=== PATIENT | female | born 1980 | race Two or more races ===

== ENCOUNTER 2020-06-17 15:11 | Outpatient (REF) | payer OTHER, SELFPAY | END 2020-06-17 15:12 | disposition home or self-care (01) | LOC: HO.LNP 15:11 | PROVIDERS: Visit Provider Hospitalist | DX: Z20.828 Contact with and (suspected) exposure to other viral communicable diseases (principal) | CPT/HCPCS: U0003 ==

== ENCOUNTER → 2023-04-27 12:50 | Outpatient (BNVA) | payer OTHER, SELFPAY | PROVIDERS: PCP Internal Medicine; Visit Provider Physician Assistant ==

== ENCOUNTER 2023-04-30 08:04 | Outpatient (AMB) | payer OTHER, SELFPAY ==
--- NOTE | 2023-04-30 12:01 | MHC.OFFVISWM ---
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 BMI 42.5 HPI Details Start time: 11.53am, End time: 12.38pm ?I spent 40 minutes speaking with the patient on the phone plus an additional 5 minutes reviewing and updating records for a total of 45 minutes HPI Comments History of Present Illness Details Previous weight loss efforts: OTC pills Wakes up: 6am, Sleeps: 10pm sometimes cannot sleep until 2am and may snack x2/wk Breakfast: x4/wk at 8am (eggs, sandwich, sausage) Lunch: 12pm (fast food) Dinner: 5-7pm (steaks, pork chops, rice, beans, burger) Snacks: 3 times between 8am-12pm (candy, cupcakes, chips), 2 times between lunch and dinner (same), 1 snack at night if she sleeps late Exercise: walk outside Fluids: [employer] coffee (18oz), tea: none, soda: regular Coke (1 pack of mini cans), juice: rare, ETOH: 1/wk (20oz Red Bull with alcohol) [facility] Medical History (Updated 04/30/23 @ 12:05 by Zane Tineo MD) Ectopic Morbid obesity Surgical History (Updated 04/30/23 @ 12:05 by Zane Tineo MD) History of salpingectomy Family History (Updated 04/27/23 @ 13:22 by FLAKITO Bradford) Mother Hypertension Fibromyalgia Arthritis Cancer of unknown origin Osteoarthritis Father Heart abnormality Daughter Hyperthyroidism Son Hypothyroid Son No problems noted. Son No problems noted. 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 Plan for lap sleeve gastrectomy. If diaphragmatic or ventral hernias are present at time of surgery, these will be repaired laparoscopically as well. Risks and complications were discussed in detail including possible conversion to an open procedure, anastomotic leak, bleeding requiring transfusion, small bowel obstruction, , DVT and pulmonary embolism, cardiac, or pulmonary complications, as terminal gauger supervisor complications such as anastomotic ulcer, insufficient weight loss and vitamin deficiencies. I emphasized the importance of close follow-up, adherence to instructions and good communication. 2. Nutritional counseling. Nutritional counseling. Start with 2 CELEBRATE REBUILD protein (buy at [facility]'s [employer]) shakes (HALF scoop EACH in 8oz low fat unsweetened almond milk each) at 7am-9am and 10am-12pm, 2 protein bars (CELEBRATE protein bars, buy at [facility] [employer]), one at 1pm-3pm and one at 4pm-6pm, dinner at 7pm (8 forks of protein and 8 forks of salad/vegetables) AND one more protein bar after dinner at 9pm-11pm. So you do 2 protein shakes, 3 protein bars and one meal per day. Meal to include lean meat (beef, fish, pork, turkey, chicken), or thai yogurt, or egg whites, or beans with a salad with olive oil and fruits (berries, pears, apples, kiwi). Avoid salt, breads, potatoes, rice, pasta, desserts. 3. Each shake would be drunk slowly, like coffee in a period of 2 hours. 4. Cut each bar in 4 pieces and eat each piece in 30min ?to make each bar last 2 hours. 5. I emphasized the importance of measuring accurately the food portion and measure it when serving the food in plate 6. The meal portions include 8 full-size forks of meat and 8 full-size forks of salad. You always eat the meat portion but you can replace up to 4 forks for salad/vegetables with rice, potatoes or pasta, or a fruit ?if you like. The less you do it the better weight loss will be. 7. One full-size fork is what it can be scooped on the fork without falling aside and not what can be bit with the fork. Use regular forks like those you find in a typical restaurant. 8.? Please send me weight measurements as soon as possible and then once a week. Always include your diet and exercise plan. 9. Start walking outside daily, tracking calories with a goal of 300 calories per day, daily. Goal is to burn 2000 calories per week on exercise, which means either 300 calories daily, or 400 calories 5 days per week, or 500 calories 4 days per week, or 650 calories 3 days per week. 10. Alternatively purchase a stationary bike, elliptical or treadmill at home that can track calories. Let me know if you do so I can give you an exercise plan. 11.?It is important of avoiding and for at least 18 months postoperatively and has been discussed at the infosession. 12. Goal is to lose at least 1.5-2lbs per week 13. Goal to lose 10% of your weight before surgery, which is about 23lbs. Ultimate weight goal: 209lbs before surgery 14. Please follow the diet plan exactly without any change. If you don't like something about the plan or you feel hungry you need to communicate with me so I can help you revise the plan. You should not change the plan yourself. Orders: Orders Insulin Today E66.01 - Morbid (severe) obesity due to excess calories Lipid Panel Today E66.01 - Morbid (severe) obesity due to excess calories Complete Blood Count Auto Diff Today E66.01 - Morbid (severe) obesity due to excess calories Vitamin B12 and Folate Today E66.01 - Morbid (severe) obesity due to excess calories Comprehensive Met. Panel Today E66.01 - Morbid (severe) obesity due to excess calories Vitamin B1 Today E66.01 - Morbid (severe) obesity due to excess calories Ferritin Today E66.01 - Morbid (severe) obesity due to excess calories TSH reflex Free T4 Today E66.01 - Morbid (severe) obesity due to excess calories H Pylori Breath Test Today E66.01 - Morbid (severe) obesity due to excess calories Vitamin D 25-OH Total Today E66.01 - Morbid (severe) obesity due to excess calories Hemoglobin A1c Today E66.01 - Morbid (severe) obesity due to excess calories US abdomen comp w elastography Today E66.01 - Morbid (severe) obesity due to excess calories FL upper GI w air Today E66.01 - Morbid (severe) obesity due to excess calories IRON PROFILE Today E66.01 - Morbid (severe) obesity due to excess calories Zinc Today E66.01 - Morbid (severe) obesity due to excess calories Vitamin A Today E66.01 - Morbid (severe) obesity due to excess calories C Reactive Protein Today E66.01 - Morbid (severe) obesity due to excess calories PTHI Today E66.01 - Morbid (severe) obesity due to excess calories XR chest 2V Today E66.01 - Morbid (severe) obesity due to excess calories ECG 12 lead EKG Today E66.01 - Morbid (severe) obesity due to excess calories Referrals Behavioral Health Referral E66.01 - Morbid (severe) obesity due to excess calories Nutrition/Dietitian Referral E66.01 - Morbid (severe) obesity due to excess calories Telehealth Telehealth Location of provider rendering services: practice address Location of patient: address on file Patient Identification confirmed using: Name, : Yes Telehealth method: voice only Patient verbally consented to treatment: Yes Patient verbally consented to billing insurance company: Yes Patient informed of any privacy concerns related to visit: Yes Minutes spent on Phone/Video with Pt.: 45 Coding Level of Care Code Tele Est Pt Level 4 (50452) Diagnoses Morbid obesity E66.01 Time Spent (min) 45
[2023-04-30 12:13] VITALS: BMI 42.4
== END 2023-04-30 12:39 | disposition home or self-care (01) ==
LOC: HO.HBS 08:04
PROVIDERS: PCP Internal Medicine; Visit Provider Surgery
DX: E66.01 Morbid (severe) obesity due to excess calories (principal); Z68.41 Body mass index [BMI] 40.0-44.9, adult
CPT/HCPCS: 99204

== ENCOUNTER → 2023-04-30 08:04 | Outpatient (BNVA) | payer OTHER, SELFPAY | PROVIDERS: PCP Internal Medicine; Visit Provider Surgery ==

== ENCOUNTER 2023-05-11 08:36 | Outpatient (REF) | payer OTHER, SELFPAY ==
[2023-05-13 15:19] LABS: H Pylori Breath Test Negative (Negative)
== END 2023-05-11 08:37 | disposition home or self-care (01) ==
LOC: HO.LNP 08:36
PROVIDERS: Surgery; PCP Internal Medicine; Visit Provider Physician Assistant Surgical
DX: E66.01 Morbid (severe) obesity due to excess calories (principal); Z11.0 Encounter for screening for intestinal infectious diseases
CPT/HCPCS: 83013; 99211

== ENCOUNTER 2023-05-12 10:15 | Outpatient (REF) | payer OTHER, SELFPAY ==
--- NOTE | ~2023-05-12 | XR_ITS ---
EXAMINATION: XR CHEST CLINICAL INFORMATION: Morbid (severe) obesity due to excess calories COMPARISON: None available. TECHNIQUE: 2 views of the chest were obtained. 10:32 AM FINDINGS: No significant abnormality is noted involving the heart, lungs, mediastinum, bony thorax or soft tissues. XR/XR chest 2V IMPRESSION: Unremarkable examination.
[2023-05-12 11:19] LABS: MANUAL DIFF FLAG NO
[2023-05-12 11:22] LABS: Basophils Percent Auto 0.7 % (0-2); Eosinophils Absolute Auto 0.2 X10*3/uL (0.0-0.4); Eosinophils Percent Auto 2.5 % (0-4); Hemoglobin 12.5 g/dl (12.0-16.0); Imm Gran Abs Auto 0.02 X10*3/uL (0.00-0.03); Imm Gran Pct Auto 0.3 % (0.0-0.4); Lymphocytes Absolute Auto 1.9 X10*3/uL (1.2-4.9); Lymphocytes Percent Auto 32.1 % (20-40); Mean Corpuscular HGB Conc 33.8 g/dl (31.0-35.0); Mean Corpuscular Hemoglobin 30.3 pg (27.0-33.0); Mean Corpuscular Volume 89.8 fL (80.0-98.0); Mean Platelet Volume 9.9 fL (9.4-12.3); Monocytes Absolute Auto 0.4 X10*3/uL (0.1-1.2); Monocytes Percent Auto 7.4 % (2-11); Neutrophils Absolute Auto 3.4 x10*3/uL (2.0-8.3); Platelet Count 327 X10*3/uL (160-400); Red Blood Count 4.12 X10*6/uL (4.20-5.50); Red Cell Distribution Width 12.2 % (11.0-16.0)
[2023-05-12 11:49] LABS: Estimated Average Glucose 108 mg/dL; Hemoglobin A1c % 5.4 % (<6.0)
[2023-05-12 14:24] LABS: Alanine Aminotransferase 18 U/L (0-31); Alkaline Phosphatase 67 U/L (39-117); Anion Gap 13 (12-20); Aspartate Amino Transferase 19 U/L (5-31); Bilirubin Total 0.5 mg/dL (0.0-1.0); Blood Urea Nitrogen 8 mg/dL (9-16); C Reactive Protein 1.12 mg/dL (< or = 0.50); Calcium 8.2 mg/dL (8.4-10.2); Carbon Dioxide 23 mmol/L (22-29); Chloride 110 mmol/L (96-108); Cholesterol 168 mg/dL (<200); Estimated Glomerular Filt Rate > 60; Glucose Random 73 mg/dL (60-115); HDL Cholesterol 50 mg/dL (>40); Iron 65 mcg/dL (30-160); LDL Cholesterol Calculated 106 mg/dL (<100); Percent Iron Saturation 22 % (15-50); Potassium 3.8 mmol/L (3.3-5.1); Sodium 142 mmol/L (135-145); Total Iron Binding Capacity 294 mcg/dL (228-428); Total Protein 7.4 g/dL (6.5-8.0); Triglycerides 64 mg/dL (<150); Unsaturated Iron Binding 229 ug/dL
[2023-05-12 14:34] LABS: Ferritin 21 ng/mL (10-250); Insulin 8 uU/mL (2-29); TSH reflex Free T4 1.44 uIU/mL (0.32-4.0); Vitamin D 25-OH Total 22.8 ng/mL (>30)
[2023-05-12 14:50] LABS: Folate 13.4 ng/mL (> or = 4.0); Vitamin B12 197 pg/mL (200-900)
[2023-05-15 05:28] LABS: Zinc 70 mcg/dL (60-130)
[2023-05-15 15:48] LABS: Calcium (PTHI) 8.7 mg/dL (8.6-10.2); PTHI 61 pg/mL (16-77)
[2023-05-17 03:59] LABS: Vitamin A 26 mcg/dL (38-98)
[2023-05-20 00:05] LABS: Vitamin B1 7 nmol/L (8-30)
== END 2023-05-12 10:16 | disposition home or self-care (01) ==
LOC: HO.HMGCX 10:15
PROVIDERS: Visit Provider Surgery
DX: E66.01 Morbid (severe) obesity due to excess calories (principal)
CPT/HCPCS: 36415; 71046; 80053; 80061; 82306; 82607; 82728; 82746; 83036; 83525; 83540; 83970; 84425; 84443; 84590; 84630; 85025; 86140

== ENCOUNTER → 2023-06-01 07:56 | Outpatient (REF) | payer OTHER, SELFPAY ==
--- NOTE | 2023-06-01 08:04 | ECG_ITS ---
Test Reason : obesity Blood Pressure : / mmHG Vent. Rate : 057 BPM Atrial Rate : 057 BPM P-R Int : 160 ms QRS Dur : 086 ms QT Int : 414 ms P-R-T Axes : 008 -15 -06 degrees QTc Int : 402 ms Sinus bradycardia Minimal voltage criteria for LVH, may be normal variant ( R in aVL ) Borderline ECG No previous ECGs available Referred By: Zane Tineo Electronically Signed By:NORIS BUCKNER MD
== END ==
LOC: HO.CARD 07:56
PROVIDERS: PCP Family Medicine; Visit Provider Surgery
DX: E66.01 Morbid (severe) obesity due to excess calories (principal)
CPT/HCPCS: 93005

== ENCOUNTER 2023-06-01 08:03 | Outpatient (AMB) | payer OTHER, SELFPAY ==
--- NOTE | 2023-06-01 08:37 | A.OFFVIS_ITS ---
Intake VS Expanded 06/01/23 08:51 Height 5 ft 2 in Weight 231 lb 8 oz BMI 42.3 Body Fat % 55.9 Body Fat Mass 129.5 Fat Free Mass 102.2 Visceral Fat Rating 23 Body Water % 30.3 Body Water Mass 70.2 Basal Metabolic Rate/Score 1,370 Intake Visit Reasons: TV Follow Up SWL - 1ST Allergies Opioids - Morphine Analogues Allergy (Intermediate, Verified 04/30/23 12:01) rash HPI TV Follow Up SWL - 1ST HPI Details Start time: 8.31am, End time: 9.01am ?I spent 25 minutes speaking with the patient on the phone plus an additional 5 minutes reviewing and updating records for a total of 30 minutes HPI Comments History of Present Illness Details Overall weight loss: 0.2lbs Has not been able to start the nutritional plan I gave her [facility] Medical History (Updated 05/25/23 @ 18:58 by Zane Tineo MD) Ectopic Morbid obesity Surgical History (Updated 04/30/23 @ 12:05 by Zane Tineo MD) History of salpingectomy Family History (Updated 04/27/23 @ 13:22 by FLAKITO Bradford) Mother Hypertension Fibromyalgia Arthritis Cancer of unknown origin Osteoarthritis Father Heart abnormality Daughter Hyperthyroidism Son Hypothyroid Son No problems noted. Son No problems noted. 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 It is very important to read this carefully, follow the plan exactly and communicate with me if something does not work so we can fix it. 2. Nutritional counseling. Nutritional counseling. Start with 2 CELEBRATE REBUILD protein (buy at [facility] [employer]) shakes (HALF scoop EACH in 8oz low fat unsweetened almond milk each) at 7am-9am and 10am-12pm, 2 protein bars (CELEBRATE protein bars, buy at [facility] [employer]), one at 1pm-3pm and one at 4pm-6pm, dinner at 7pm (8 forks of protein and 8 forks of salad/vegetables) AND one more protein bar after dinner at 9pm-11pm. So you do 2 protein shakes, 3 protein bars and one meal per day. Meal to include lean meat (beef, fish, pork, turkey, chicken), or icelandic yogurt, or egg whites, or beans with a salad with olive oil and fruits (berries, pears, apples, kiwi). Avoid salt, breads, potatoes, rice, pasta, desserts. 3. Each shake would be drunk slowly, like coffee in a period of 2 hours. 4. Cut each bar in 4 pieces and eat each piece in 30min ?to make each bar last 2 hours. 5. I emphasized the importance of measuring accurately the food portion and measure it when serving the food in plate 6. The meal portions include 8 full-size forks of meat and 8 full-size forks of salad. You always eat the meat portion but you can replace up to 4 forks for salad/vegetables with rice, potatoes or pasta, or a fruit ?if you like. The less you do it the better weight loss will be. 7. One full-size fork is what it can be scooped on the fork without falling aside and not what can be bit with the fork. Use regular forks like those you find in a typical restaurant. 8.? Please send me weight measurements weekly on Fridays. Always include your diet and exercise plan. 9. Start walking outside daily, tracking calories with a goal of 300 calories per day, daily. Goal is to burn 2000 calories per week on exercise, which means either 300 calories daily, or 400 calories 5 days per week, or 500 calories 4 days per week, or 650 calories 3 days per week. 10. Please purchase a stationary bike, elliptical or treadmill at home that can track calories. Let me know if you do so I can give you an exercise plan. 11.?Goal is to lose at least 1.5-2lbs per week 12. Goal to lose 10% of your weight before surgery, which is about 23lbs. Ultimate weight goal: 209lbs before surgery Telehealth Telehealth Location of provider rendering services: practice address Location of patient: address on file Patient Identification confirmed using: Name, : Yes Telehealth method: voice only Patient verbally consented to treatment: Yes Patient verbally consented to billing insurance company: Yes Patient informed of any privacy concerns related to visit: Yes Minutes spent on Phone/Video with Pt.: 30 Coding Level of Care Code Tele Est Pt Level 4 (65617) Diagnoses Morbid obesity E66.01 Time Spent (min) 30
[2023-06-01 08:51] VITALS: BMI 42.3
== END 2023-06-01 09:02 | disposition home or self-care (01) ==
LOC: HO.HBS 08:03
PROVIDERS: PCP Family Medicine; Visit Provider Surgery
DX: E66.01 Morbid (severe) obesity due to excess calories (principal)
CPT/HCPCS: 99214

== ENCOUNTER 2023-06-05 09:30 | Outpatient (AMB) | payer OTHER, SELFPAY ==
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
== END 2023-06-05 09:48 | disposition home or self-care (01) ==
LOC: HO.HBST 09:30
PROVIDERS: PCP Family Medicine; Visit Provider Counselor Mental Health
DX: F41.1 Generalized anxiety disorder (principal); F50.81 Binge eating disorder; E66.01 Morbid (severe) obesity due to excess calories
CPT/HCPCS: 90791

== ENCOUNTER → 2023-06-05 09:30 | Outpatient (BNVA) | payer OTHER, SELFPAY | PROVIDERS: PCP Family Medicine; Visit Provider Counselor Mental Health ==